=== PATIENT | female | born 1980 | race Caucasian/White ===

== ENCOUNTER → 2019-10-19 13:28 | Outpatient (CLI) | payer OTHER, SELFPAY ==
--- NOTE | 2019-10-19 | DI.ECHO.S_ITS ---
[place] [facility]---------+ [facility] +---------+ : : [address] : : : : [id number] : : : : Phone: [phone]+ Echocardiogram Report + + :Name: UBALDO BURRIS Study Date: 10/19/2019 Height: 64 in : :[facility] Weight: 154 lb : : Gender: Female BSA: 1.8 m2 : :: 1980 Age: 39 yrs BP: 131/92 mmHg: :Reason For Study: HEART MURMUR : :Ordering Physician: EFRAIN, : :YOSI Performed By: Dedra Jon : :Referring: YOSI ZUNIGA : + + Interpretation Summary The left ventricle is normal in size and wall thickness. The left ventricular ejection fraction is normal. Diastolic parameters suggest probable normal left ventricular diastolic function and normal filling pressures. The right ventricle is normal in size and function. Both atria are normal in size. There is no Doppler evidence for an interatrial shunt. No significant valvular abnormalities. Procedure: A two-dimensional transthoracic echocardiogram with color flow and Doppler was performed. The study quality was technically good. There is no prior echocardiogram noted for this patient. The patient was in sinus bradycardia with heart rates between 59-64 bpm during the exam. Left Ventricle: The left ventricle is normal in size and wall thickness. The ejection fraction is estimated to be 60-65%. The left ventricular ejection fraction is normal. Diastolic parameters suggest probable normal left ventricular diastolic function and normal filling pressures. Right Ventricle: The right ventricle is normal in size and function. Atria: Both atria are normal in size. There is no Doppler evidence for an interatrial shunt. Mitral Valve: The mitral valve is normal in structure but abnormal in function. There is mild mitral regurgitation. Aortic Valve: The aortic valve is trileaflet. The aortic valve opens well. There is no aortic valve stenosis. No aortic regurgitation is present. Tricuspid Valve: The tricuspid valve is normal in structure and function. There is mild to moderate tricuspid regurgitation. The right ventricular systolic pressure is estimated to be at least 27 mmHg based on an estimated right atrial pressure of 3 mm Hg. Pulmonic Valve: The pulmonic valve leaflets are thin and pliable; valve motion is normal. There is trace pulmonic regurgitation. Great Vessels: The aortic root is normal size. The dimensions of the ascending aorta are normal. The IVC is of normal diameter and collapses greater than 50% with a sniff. This suggests a low right atrial pressure of 3 mm Hg. Pericardium/ Pleura There is no pericardial effusion. There is no pleural effusion. MMode/2D Measurements & Calculations LVIDd: 4.7 cm LVOT diam: 2.0 cm LVIDs: 3.1 cm Ao root diam: 2.7 cm FS: 33.7 % asc Aorta Diam: 2.9 cm EPSS: 0.47 cm Ao Arch Diam (Prox Trans): 3.0 cm IVSd: 0.80 cm LVPWd: 0.71 cm LV magaña. diameter/BSA (cm/m^2): 2.7 LV sys. diameter/BSA (cm/m^2): 1.8 LA A2 area: 16.2 cm2 RA long axis: 5.2 cm LA A4 area: 19.7 cm2 RA area: 17.3 cm2 LA length (vol): 5.1 cm RA vol: 49.2 ml LA vol: 53.1 ml RA : 28.1 ml/m2 LA vol index: 30.4 ml/m2 IVC diam: 1.6 cm RVD1 (basal): 2.9 cm TAPSE: 2.3 cm Doppler Measurements & Calculations Ao V2 max: 164.5 cm/sec LVOT Max Beltran: 147.9 cm/sec Ao V2 mean: 105.3 cm/sec LV V1 max P.7 mmHg Ao max P.8 mmHg LV V1 VTI: 28.8 cm Ao mean P.3 mmHg SAVANNA(I,D): 2.5 cm2 Ao V2 VTI: 35.3 cm SAVANNA(V,D): 2.8 cm2 sev ratio: 0.82 SAVANNA indexed to BSA (cm^2/m^2): 1.5 MV E max beltran: 105.0 cm/sec TR max beltran: 243.0 cm/sec MV A max beltran: 73.2 cm/sec TR max P.6 mmHg MV E/A: 1.4 PA V2 max: 132.9 cm/sec Med Peak E' Beltran: 11.4 cm/sec PA V2 mean: 85.9 cm/sec E/E' med: 9.2 PA mean P.5 mmHg Lat Peak E' Beltran: 12.2 cm/sec PA pr(Accel): 5.4 mmHg E/E' lat: 8.6 E/e' average: 8.9 MV dec time: 0.20 sec SV(LVOT): 89.9 ml Electronically signed by: Vikas Mas M.D. on Reading Physician:10/19/2019 06:06 PM
== END ==
PROVIDERS: PCP Physician Assistant; Referring Provider Physician Assistant; Visit Provider Physician Assistant
DX: I08.1 Rheumatic disorders of both mitral and tricuspid valves (principal); R01.1 Cardiac murmur, unspecified
CPT/HCPCS: 93306

== ENCOUNTER → 2021-07-21 11:49 | Outpatient (CLI) | payer OTHER, SELFPAY ==
--- NOTE | 2021-07-21 11:57 | DI.RAD.S_ITS ---
PROCEDURE: XR LUMBAR SPINE 2-3V INDICATIONS: LOWER BACK AND HIP PAIN TECHNIQUE: 3 views of the lumbar spine were acquired. COMPARISON: None. FINDINGS: Bones: 5 [id number] vertebrae are present. 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 There is normal bony alignment. No vertebral body compression fractures. No suspicious bony lesions. Soft tissues: Overlying bowel gas pattern is normal. No suspicious soft tissue calcifications. IMPRESSION: No significant abnormality. Dictated by: Eran Lao M.D. on 07/21/2021 at 13:40 Approved by: Eran Lao M.D. on 07/21/2021 at 13:40
--- NOTE | 2021-07-21 11:57 | DI.RAD.S_ITS ---
PROCEDURE: XR HIP W PEL IF DONE RT 2V INDICATIONS: BACK AND HIP PAIN TECHNIQUE: AP pelvis with lateral view(s) of the right hip(s). COMPARISON: None. FINDINGS: Bones: No fractures or dislocations. Pelvic ring appears intact. No suspicious bony lesions. Soft tissues: The visualized bowel gas pattern is normal. No suspicious soft tissue calcifications. IMPRESSION: No significant abnormality. Dictated by: Eran Lao M.D. on 07/21/2021 at 13:40 Approved by: Eran Lao M.D. on 07/21/2021 at 13:41
== END ==
PROVIDERS: PCP Physician Assistant; Referring Provider Physician Assistant; Visit Provider Physician Assistant
DX: M54.50 Low back pain, unspecified (principal); M25.551 Pain in right hip
CPT/HCPCS: 72100; 73502

== ENCOUNTER → 2021-07-22 12:43 | Outpatient (CLI) | payer OTHER, SELFPAY | PROVIDERS: PCP Physician Assistant; Referring Provider Physician Assistant; Visit Provider Physician Assistant | DX: R19.7 Diarrhea, unspecified (principal) | CPT/HCPCS: 87045; 87177; 87329; 87493; 87899 ==

== ENCOUNTER → 2022-04-21 08:39 | Outpatient (CLI) | payer OTHER, SELFPAY ==
--- NOTE | 2022-04-21 | DI.MRI.S_ITS ---
PROCEDURE: MR LUMBAR SPINE WO CON INDICATIONS: Spinal stenosis, lumbar region TECHNIQUE: Noncontrast sagittal T1 spin echo and T2 fast echo, sagittal STIR, and T2 fast spin echo through the lumbar spine. In cases with scoliosis, additional coronal T2 fast spin echo may be performed. COMPARISON: None. FINDINGS: Image quality: Excellent. Alignment and Curvature: There is normal bony alignment. Bone Marrow: Marrow is of normal overall signal. No acute vertebral body compression fractures. Spinal Cord: Conus medullaris terminates at the L1 level. Visualized cord demonstrates normal signal and size. Paraspinous Soft Tissues: No paravertebral masses. T12-L1: Normal appearance. L1-L2: Normal appearance. L2-L3: Normal appearance. L3-L4: Normal appearance. L4-L5: Disc height is maintained. No disc bulge. Mild facet arthropathy present. No central or foraminal stenosis. L5-S1: Normal appearance. IMPRESSION: Mild L4-5 facet arthropathy. Otherwise unremarkable MRI of the lumbar spine Approved by: Will Rasheed M.D. on 04/21/2022 at 13:40
== END ==
PROVIDERS: PCP Physician Assistant; Referring Provider Orthopaedic Surgery Orthopaedic Surgery of the Spine; Visit Provider Orthopaedic Surgery Orthopaedic Surgery of the Spine
DX: M48.061 Spinal stenosis, lumbar region without neurogenic claudication (principal); M47.816 Spondylosis without myelopathy or radiculopathy, lumbar region
CPT/HCPCS: 72148